=== PATIENT | male | born 1980 | race Caucasian/White ===

== ENCOUNTER 2016-06-14 20:15 | Emergency (ER) ==
[2016-06-14 20:42] LABS: MANUAL DIFF NEEDED? NO
[2016-06-14 20:47] LABS: BASO% 0.4 % (0.0-0.8); EOS# 0.44 X1000 (0.0-0.7); EOS% 3.9 % (0.0-10.0); HEMATOCRIT 46.4 % (42.0-52.0); IMM GRAN# 0.03 X1000 (0.0-0.04); IMM GRAN% 0.3 % (0.0-0.5); LYMPH# 3.31 X1000 (1.2-3.4); LYMPH% 29.3 % (20.5-51.1); MCHC 34.5 g/dL (33-37); MCV 87.1 FL (81-99); MONO# 0.82 X1000 (0.11-0.59); MONO% 7.3 % (1.7-9.3); MPV 11.2 FL (7.4-10.4); NEUT% 58.8 % (42.2-75.2); PLT 301 X1000 (130-400); RBC 5.33 XMIL (4.7-6.1)
[2016-06-14 20:54] LABS: INR 0.97; PROTIME 10.3 Seconds (9.2-11.7); PTT 28.5 Seconds (22.0-36.0)
[2016-06-14 21:07] LABS: AGAP 13; ALKALINE PHOSPHATASE 125 U/L (32-122); BUN 13 mg/dL (8-22); CALCIUM 9.6 mg/dL (8.8-10.2); CHLORIDE 100 mmol/L (98-107); CK PROFILE 56 U/L (24-204); COSMO 273; GOT 23 U/L (10-34); GPT 36 U/L (10-44); MAGNESIUM 2.1 mg/dL (1.5-2.7); POTASSIUM 4.1 mmol/L (3.5-5.1); SODIUM 137 mmol/L (136-145); TCO2 24 mmol/L (25-35); TOTAL BILIRUBIN 0.34 mg/dL (0.20-1.00); TOTAL PROTEIN 7.7 g/dL (6.3-8.3)
--- NOTE | 2016-06-14 21:36 | PROVIDER DOCUMENTATION ---
HPI-General Adult <Dariela Rust - Last Filed: 06/14/16 22:11> - General Source: patient - History of Present Illness -Gen Adult Nature of Presenting Problems: Pt. is 35 yom that presents with c/o sudden onset of SOB, diaphoresis, and nausea. Pt. denies any CP or vomiting. 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 Pt. reports he decided to go home and when he got into his living room, he became clammy and SOB. Pt. reports a similar episode about 6 years ago and states at that time, he had a stress test and everything was clear. Pt. denies any other symptoms and reports he feels fine at time of exam. Location of Pain/Injury: reports: none. denies: head, face, mouth, neck, chest , upper extremity, hand(s), abdomen, back, pelvis, genitalia, lower extremity, feet, upper body, lower body, generalized Pain Radiation: reports: no radiation Quality of Pain: reports: none. denies: aching, burning, cramping, dull, fullness, indigestion, pressure, sharp, stabbing, tearing, throbbing, tightness Severity: reports: mild. denies: moderate, severe Onset/Duration: reports: abrupt, just prior to arrival Timing: reports: gone now. denies: still present, improving, resolved prior to arrival, intermittent, constant, changing over time, getting worse Context/Activities at Onset: reports: light activity. denies: recent emotional stress, recent physical stress, recent trauma history, possible bad food, cold exposure, out of country travel Modifying Factors: improves with: nothing Associated Symptoms: reports: diaphoresis, nausea, shortness of breath. denies : anxiety, arm pain, back/neck pain, chest pain, constipation, cough, diarrhea, dizziness, EENT symptoms, fatigue, fever/chills, genitourinary problems, headaches, heartburn, joint pain, loss of appetite, malaise, muscle aches, sinus congestion/drainage, rash, seizure, sensory/motor loss, pain with inspiration, swelling/mass in abdomen, syncope, vomiting, weakness, trouble walking Similar Symptoms Previously?: No Recently seen or treated by another doctor?: No <Gilbert Zuniga - Last Filed: 06/14/16 22:58> - General Chief Complaint: B/P Problems Stated Complaint: HIGH BP, STONE Time Seen by Provider: 06/14/16 21:21 Allergies/Adverse Reactions: Patient Allergies Allergy/AdvReac Type Severity Reaction Status Date / Time Penicillins Allergy RASH Verified 06/14/16 20:34 Home Medications: Home Medication List Medication Instructions Recorded Confirmed Last Taken Type No Home Medications 06/14/16 06/14/16 Unknown History Review of Systems - Adult - REVIEW OF SYSTEMS - ADULT Constitutional: reports: see HPI. denies: chills, fever, fatique Eyes: reports: see HPI. denies: discharge, blurred vision, double vision Ears, Nose, Mouth & Throat: reports: see HPI. denies: ear pain, hearing loss, nose pain, loose teeth, mouth/dental pain, throat pain, throat swelling Cardiovascular: reports: see HPI. denies: chest pain, irregular heart rate, orthopnea, palpitations, syncope Respiratory: reports: see HPI, shortness of breath. denies: cough, dyspnea on exertion, pleurisy, wheezing Gastrointestinal: reports: see HPI, nausea. denies: abdominal pain, hematemesis , difficulty swallowing, vomiting Genitourinary: reports: see HPI. denies: dysuria, discharge, hematuria, hesitency, urgency Musculoskeletal: reports: see HPI. denies: bone pain, back pain, joint pain, muscle aches, neck pain Integumentary: reports: see HPI, other (diaphoresis). denies: hives, itching, rash, skin thickening Neurological: reports: see HPI. denies: dizziness/vertigo, numbness, seizure, tremors Psychiatric: reports: see HPI. denies: anxiety, depression, emotional problems , insomnia, panic attacks, suicidal thoughts <Gilbert Zuniga - Last Filed: 06/14/16 22:58> Past History - Adult - PAST MEDICAL HISTORY-ADULT Review of Records: reports: Old Records Reviewed, Nursing Assessment Review, Medications Reviewed, Social history reviewed & non-contributory. - IMMUNIZATION STATUS Childhood Immunizations: See Nurse Assessment Flu Vaccine: See Nurse Assessment - FAMILY HISTORY Family History: reviewed, not pertinent - SOCIAL HISTORY Smoking: non-smoker <Gilbert Zuniga - Last Filed: 06/14/16 22:58> Physical Exam-General - PHYSICAL EXAM-ADULT Initial Vital Signs Reviewed: Yes - CONSTITUTIONAL General Appearance: alert, no apparent distress, obese. negative: thin, anxious , lethargic, slow to respond, obtunded, combative - EYES Eyes: PERRL/EOMI, pink conjunctivae. negative: scleral icterus, subconjunctival hemorrhage - HEAD, EARS, NOSE, MOUTH & THROAT HENMT: normocephalic/atraumatic, moist mucous membranes, normal ENT inspection. negative: angioedema, frontal tenderness, maxillary tenderness - NECK Neck: non-tender, full range of motion, supple, normal inspection. negative: lymphadenopathy, trachial deviation, thyromegaly - RESPIRATORY Respiratory: lungs clear, normal breath sounds. negative: crackles, rales, rhonchi, stridor, wheezing - CARDIOVASCULAR Cardiovascular: normal peripheral pulses, regular rate, rhythm, no edema, no JVD , no murmur. negative: extra beats, friction rub, irregularly irregular - CHEST (BREASTS) Chest/Breast: deferred - GASTROINTESTINAL (ABDOMEN) Abdominal Exam: normal bowel sounds, non tender, soft. negative: distended, guarding, rigid, rebound, tenderness, hernia, mass - GENITOURINARY Male Genitalia: deferred Rectal Exam: deferred Hemoccult Exam: deferred - LYMPHATIC Lymphatic: no adenopathy. negative: axilla node tender, cervical node tenderness - MUSCULOSKELETAL Back Exam: normal inspection, no CVA tenderness, no vertebral tenderness. negative: ecchymosis, swelling, vertebral tenderness Extremity: normal range of motion, non-tender, normal gait, normal inspection. negative: deformity, erythema, inflammation, swelling, tenderness Peripheral Pulses: radial (R): 2+, radial (L): 2+ - SKIN Integumentary: normal color, normal turgor, warm/dry. negative: cyanosis, diaphoresis, ecchymosis, erythema, jaundice, mottled, pallor, petechiae, purpura , rash, swelling, tenderness - NEUROLOGIC Neurologic: grossly normal, no motor/sensory deficits. negative: aphasia, facial droop, focal weakness, motor weakness, sensory deficit - PSYCHIATRIC Psych/Mental Status: normal mood/affect, normal thought content, normal thought process, oriented x 3. negative: anxious, paranoid, tearful <Gilbert Zuniga - Last Filed: 06/14/16 22:58> Progress - EKG 1 Time of EKG reading by physician:: 20:29 EKG Read and Signed by:: Adrian Granados EKG Interpretation (*Must complete 3 of following elements*): Normal Rate: 84 Rhythm: NSR [place]: normal 2 Time of EKG reading by physician:: 21:54 EKG Read and Signed by:: Adrian Granados EKG Interpretation (*Must complete 3 of following elements*): Normal Rate: 67 Rhythm: NSR [place]: normal Comments: early repolarization <Dariela Rust - Last Filed: 06/14/16 22:11> - PLAN OF CARE/RESULTS Progress/Plan/Lab Results: Discussed results and plan of care with patient. Patient agrees with plan and verbalizes understanding. Vital Signs Temp Pulse Resp BP Pulse Ox 06/14/16 22:00 73 16 121/87 94 L 06/14/16 20:20 98.2 F 94 H 18 138/86 96 Penicillins Allergy (Verified 06/14/16 20:34) RASH No Home Medications 06/14/16 Laboratory 06/14/16 06/14/16 06/14/16 21:50 21:50 20:37 WBC RBC Hgb Hct MCV MCH MCHC RDW Std Deviation Plt Count MPV Immature Gran % (Auto) Neut % (Auto) Lymph % (Auto) [place] % (Auto) Eos % (Auto) Baso % (Auto) Immature Gran # (Auto) Neut # (Auto) Lymph # (Auto) [place] # (Auto) Eos # (Auto) Baso # (Auto) PT INR PTT (Actin FS) D-Dimer Sodium Potassium Chloride Carbon Dioxide Anion Gap BUN Creatinine Estimated GFR/1.73 m2 BUN/Creatinine Ratio Glucose Calculated Osmolality Calcium Magnesium Total Bilirubin AST ALT Alkaline Phosphatase Creatine Kinase 52 Troponin T < 0.010 < 0.010 Cfo-B-Qiealgwerty Pept Total Protein Albumin Globulin Albumin/Globulin Ratio 06/14/16 06/14/16 06/14/16 20:37 20:37 20:37 WBC RBC Hgb Hct MCV MCH MCHC RDW Std Deviation Plt Count MPV Immature Gran % (Auto) Neut % (Auto) Lymph % (Auto) [place] % (Auto) Eos % (Auto) Baso % (Auto) Immature Gran # (Auto) Neut # (Auto) Lymph # (Auto) [place] # (Auto) Eos # (Auto) Baso # (Auto) PT 10.3 INR 0.97 PTT (Actin FS) 28.5 D-Dimer 0.28 Sodium Potassium Chloride Carbon Dioxide Anion Gap BUN Creatinine Estimated GFR/1.73 m2 BUN/Creatinine Ratio Glucose Calculated Osmolality Calcium Magnesium Total Bilirubin AST ALT Alkaline Phosphatase Creatine Kinase Troponin T Nww-N-Hfkxxhfzeme Pept 26 Total Protein Albumin Globulin Albumin/Globulin Ratio 06/14/16 06/14/16 20:37 20:37 WBC 11.31 H RBC 5.33 Hgb 16.0 Hct 46.4 MCV 87.1 MCH 30.0 MCHC 34.5 RDW Std Deviation 12.4 Plt Count 301 MPV 11.2 H Immature Gran % (Auto) 0.3 Neut % (Auto) 58.8 Lymph % (Auto) 29.3 Lander % (Auto) 7.3 Eos % (Auto) 3.9 Baso % (Auto) 0.4 Immature Gran # (Auto) 0.03 Neut # (Auto) 6.67 H Lymph # (Auto) 3.31 Lander # (Auto) 0.82 H Eos # (Auto) 0.44 Baso # (Auto) 0.04 PT INR PTT (Actin FS) D-Dimer Sodium 137 Potassium 4.1 Chloride 100 Carbon Dioxide 24 L Anion Gap 13 BUN 13 Creatinine 1.0 Estimated GFR/1.73 m2 > 60 BUN/Creatinine Ratio 13 Glucose 84 Calculated Osmolality 273 Calcium 9.6 Magnesium 2.1 Total Bilirubin 0.34 AST 23 ALT 36 Alkaline Phosphatase 125 H Creatine Kinase 56 Troponin T Bae-P-Qxrinmhdmgn Pept Total Protein 7.7 Albumin 4.0 Globulin 3.7 Albumin/Globulin Ratio 1.1 Orders Category Date Time Status CBC WITH ELECTRONIC DIFF [HEME] Stat Lab 06/14/16 20:37 Completed CK PROFILE [SP CHEM] Stat Lab 06/14/16 20:37 Completed CK PROFILE [SP CHEM] Stat Lab 06/14/16 21:50 Completed COMPREHENSIVE METABOLIC PANEL [CHEM] Stat Lab 06/14/16 20:37 Completed D-DIMER [CHEM] Stat Lab 06/14/16 20:37 Completed MAGNESIUM [CHEM] Stat Lab 06/14/16 20:37 Completed PRO B-NATRIURETIC PEPTIDE Stat Lab 06/14/16 20:37 Completed PROTIME WITH INR [COAG] Stat Lab 06/14/16 20:37 Completed PTT [COAG] Stat Lab 06/14/16 20:37 Completed TROPONIN T Stat Lab 06/14/16 20:37 Completed TROPONIN T Stat Lab 06/14/16 21:50 Completed Aspirin Med 06/14/16 21:50 Discontinued 325 mg PO NOW ONE EKG [EKG] Stat Ther 06/14/16 20:35 Ordered EKG [EKG] Stat Ther 06/14/16 21:30 Ordered Laboratory Tests 06/14/16 06/14/16 06/14/16 20:37 20:37 20:37 WBC 11.31 H RBC 5.33 Hgb 16.0 Hct 46.4 MCV 87.1 MCH 30.0 MCHC 34.5 RDW Std Deviation 12.4 Plt Count 301 MPV 11.2 H Immature Gran % (Auto) 0.3 Neut % (Auto) 58.8 Lymph % (Auto) 29.3 Lander % (Auto) 7.3 Eos % (Auto) 3.9 Baso % (Auto) 0.4 Immature Gran # (Auto) 0.03 Neut # (Auto) 6.67 H Lymph # (Auto) 3.31 Lander # (Auto) 0.82 H Eos # (Auto) 0.44 Baso # (Auto) 0.04 PT INR PTT (Actin FS) D-Dimer 0.28 Sodium 137 Potassium 4.1 Chloride 100 Carbon Dioxide 24 L Anion Gap 13 BUN 13 Creatinine 1.0 Estimated GFR/1.73 m2 > 60 BUN/Creatinine Ratio 13 Glucose 84 Calculated Osmolality 273 Calcium 9.6 Magnesium 2.1 Total Bilirubin 0.34 AST 23 ALT 36 Alkaline Phosphatase 125 H Creatine Kinase 56 Troponin T Zeq-S-Tauwuchtebb Pept Total Protein 7.7 Albumin 4.0 Globulin 3.7 Albumin/Globulin Ratio 1.1 06/14/16 06/14/16 06/14/16 20:37 20:37 20:37 WBC RBC Hgb Hct MCV MCH MCHC RDW Std Deviation Plt Count MPV Immature Gran % (Auto) Neut % (Auto) Lymph % (Auto) [place] % (Auto) Eos % (Auto) Baso % (Auto) Immature Gran # (Auto) Neut # (Auto) Lymph # (Auto) [place] # (Auto) Eos # (Auto) Baso # (Auto) PT 10.3 INR 0.97 PTT (Actin FS) 28.5 D-Dimer Sodium Potassium Chloride Carbon Dioxide Anion Gap BUN Creatinine Estimated GFR/1.73 m2 BUN/Creatinine Ratio Glucose Calculated Osmolality Calcium Magnesium Total Bilirubin AST ALT Alkaline Phosphatase Creatine Kinase Troponin T < 0.010 Yuo-C-Cgdhterdaaw Pept 26 Total Protein Albumin Globulin Albumin/Globulin Ratio 06/14/16 06/14/16 21:50 21:50 WBC RBC Hgb Hct MCV MCH MCHC RDW Std Deviation Plt Count MPV Immature Gran % (Auto) Neut % (Auto) Lymph % (Auto) [place] % (Auto) Eos % (Auto) Baso % (Auto) Immature Gran # (Auto) Neut # (Auto) Lymph # (Auto) [place] # (Auto) Eos # (Auto) Baso # (Auto) PT INR PTT (Actin FS) D-Dimer Sodium Potassium Chloride Carbon Dioxide Anion Gap BUN Creatinine Estimated GFR/1.73 m2 BUN/Creatinine Ratio Glucose Calculated Osmolality Calcium Magnesium Total Bilirubin AST ALT Alkaline Phosphatase Creatine Kinase 52 Troponin T < 0.010 Sos-Y-Fylbzyrshfd Pept Total Protein Albumin Globulin Albumin/Globulin Ratio <Gilbert Zuniga - Last Filed: 06/14/16 22:58> Departure <Dariela Rust - Last Filed: 06/14/16 22:11> - Departure Time of Disposition Order: 22:56 Certified Medical Emergency: Emergent <Gilbert Zuniga - Last Filed: 06/14/16 22:58> - Departure DIAGNOSIS: Vagal reaction Disposition: HOME 01 Condition: Stable Additional Instructions: Follow up with primary care physician Follow up with child's nurse Return to ED for any concerns or worsening of symptoms ED Follow Up Instructions: You have been treated by a care provider in the Emergency Department. These instructions are being provided to you so you can have an understanding of how to care for yourself upon discharge. Upon discharge from the Emergency Department, you are responsible for making arrangements for follow-up care by a physician of your choice. Take all prescribed medications as directed. Return to the Emergency Department immediately for any new or worsening symptoms. You may call the Physician Referral phone number at [phone] to obtain a list of Physicians who are taking new patients. Referrals: Elena Puentes MD [Primary Care Provider] - Lito Maldonado MD [STAFF PHYSICIAN] - Attestation - Physician/ ABDI Attestation Patient care was provided by Advanced Practice Provider:: Yes Advanced Practice Provider:: Gilbert Zuniga Advanced Practice Provider documentation review:: The Mid-level provider documentation, treatment plan and medical decision making was reviewed by the physician who agrees with all treatment and medical decision making by the MLP. <Gilbert Zuniga - Last Filed: 06/14/16 22:58> Physician Attestation
[2016-06-14] MEDS ORDERED: ASPIRIN PO ONE (21:50)
[2016-06-14 23:30] VITALS: BP 126/76
--- NOTE | 2016-06-15 05:50 | EKG Report ---
Test Performed on : 06/14/2016 9:54:23 PM Test Reason : repeat Blood Pressure : / mmHG Vent. Rate : 067 BPM Atrial Rate : 067 BPM P-R Int : 164 ms QRS Dur : 094 ms QT Int : 366 ms P-R-T Axes : 032 032 032 degrees QTc Int : 386 ms Normal sinus rhythm. Early repolarization Normal ECG When compared with ECG of 14-JUN-2016 20:29, (Unconfirmed) No significant change was found Unconfirmed Result
--- NOTE | 2016-06-15 05:51 | EKG Report ---
Test Performed on : 06/14/2016 8:29:58 PM Test Reason : Chest Pain Blood Pressure : / mmHG Vent. Rate : 084 BPM Atrial Rate : 084 BPM P-R Int : 160 ms QRS Dur : 090 ms QT Int : 342 ms P-R-T Axes : 040 028 041 degrees QTc Int : 404 ms Normal sinus rhythm. Normal ECG No previous ECGs available Unconfirmed Result
== END 2016-06-14 23:31 | disposition home or self-care (01) ==
LOC: ED 20:15
DX: R55 Syncope and collapse (principal); R06.02 Shortness of breath; R61 Generalized hyperhidrosis; R11.0 Nausea; R51 Headache; E66.9 Obesity, unspecified
CPT/HCPCS: 80053; 82550; 83735; 83880; 84484; 85025; 85379; 85610; 85730; 93005